=== PATIENT | male | born 1945 | race American Indian/Alaskan Native ===

== ENCOUNTER 2016-09-06 02:32 | Observation (INO) | payer MEDICARE ==
[~2016-09-06] VITALS: Ht 172.7 cm; Wt 90.1 kg
[~2016-09-06 02:32] MED LIST: BAYER CHEWABLE81 MG PO; IMDUR30 MG PO; LANTUS SOL100 UNIT/1 SC; LASIX20 MG PO; LIPITOR40 MG PO; METOPROLOL TART50 MG PO; NITROSTAT0.4 MG SL; PEPCID20 MG PO; PLAVIX75 MG PO; TERAZOSIN HCL2 MG PO; TRADJENTA5 MG PO
[2016-09-06 03:01] LABS: BASOPHILS 0.2 % (0.0-2.0); EOSINOPHILS 2.4 % (0-7); HEMATOCRIT 37.5 % (42.0-54.0); HEMOGLOBIN 12.6 g/dL (13.5-17.5); IMMATURE GRANULOCYTES 1.5 % (0-5); LYMPHOCYTES 19.5 % (15-50); MCH 32.7 pg (26.0-34.0); MCHC 33.6 g/dL (31.0-37.0); MCV 97.4 fL (80.0-100.0); MEAN PLATELET VOLUME 9.6 fL (7.4-10.4); MONOCYTES 8.4 % (2-11); PLATELET COUNT 171 10x3/uL (130-400); RBC 3.85 10x6/uL (4.20-6.10); RDW 13.1 % (11.5-14.5); WBC 6.6 10x3/uL (4.8-10.8)
[2016-09-06 03:08] LABS: APTT 27.3 SECONDS (22.8-39.4); INR 1.07 (0.85-1.17); PROTIME 13.8 SECONDS (11.6-15.0)
[2016-09-06 03:12] LABS: ALBUMIN 3.3 g/dL (3.4-5.0); ALKALINE PHOSPHATASE 69 U/L (46-116); ALT (SGPT) 19 U/L (10-68); BILIRUBIN - TOTAL 0.33 mg/dL (0.2-1.3); CALC OSMOLALITY 292 mosm/kg (275-300); CALCIUM 8.5 mg/dL (8.5-10.1); CARBON DIOXIDE 24.1 mmol/L (21.0-32.0); CHLORIDE - SERUM 103 mmol/L (98-107); CREATININE - SERUM 2.2 mg/dL (0.6-1.3); POTASSIUM - SERUM 4.4 mmol/L (3.5-5.1); PROTEIN - SERUM 6.9 g/dL (6.4-8.2); SODIUM 136 mmol/L (136-145); UREA NITROGEN 37 mg/dL (7-18); eGFR NON AFRICAN AMERICAN 31 mL/min (90-120)
[2016-09-06 03:13] LABS: GLUCOSE 307 mg/dL (74-106)
[2016-09-06 03:24] LABS: AMYLASE - SERUM 115 U/L (25-115); CKMB 0.7 U/L (0.0-3.6); CREATINE KINASE 62 UL (21-232); LIPASE 433 U/L (73-393); PRO BNP 340 pg/mL (0-125)
[2016-09-06 03:25] LABS: TROPONIN-I < 0.017 ng/mL (0.000-0.060)
[2016-09-06 04:00] VITALS: BP 170/93
[2016-09-06 05:15] VITALS: BP 170/93; BMI 28.6
--- NOTE | 2016-09-06 07:12 | NUR ---
PT RECEIVED FROM ER VIA WHEELCHAIR, AWAKE, ALERT, ORIENTED. 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 PT STATES HE HAS AN APPT TODAY @ 15:[address] GARLAND IN THE CLINIC. I EXPLAINED THAT DR. GARLAND WOULD BE SEEING HIM IN THE HOSPITAL. PT DENIES ANY NEEDS. CONTINUE TO MONITOR CLOSELY.
--- NOTE | 2016-09-06 07:28 | NUR ---
0715-AM ROUNDING DONE. PATIENT REQUESTING AN EXTRA BLANKET, NONE ON FLOOR AT PRESENT TIME. I TOLD HIM I WOULD GIVE HIM ONE WHEN THEY COME ONTO THE FLOOR. ON ROOM AIR, ON HEART MONITOR SHOWING SR, HR 77. SALINE LOCK SEEN TO LEFT AC. WILL CONTINUE TO MONITOR.
[2016-09-06 08:10] VITALS: BP 153/79
[2016-09-06 10:43] VITALS: Ht 172.7 cm; Wt 90.1 kg
[2016-09-06 11:50] VITALS: BP 110/64
--- NOTE | 2016-09-06 13:33 | NUR ---
SCD'S ON BILATERAL LE
--- NOTE | 2016-09-06 14:20 | NUR ---
WENT INTO DO FINGER STICK BLOOD SUGAR AND PATIENT STATES THAT "I WANT TO SLEEP, I HAVE NOT SLEPT SINCE 0800 YESTERDAY". DENIES ANY SYMTOMS.
--- NOTE | 2016-09-06 15:44 | NUR ---
PATIENT STATES THAT HIS LEFT LEG IS STARTING TO ITCH NOW OFF AND ON. I DO NOT SEE A RASH. WILL CONTINUE TO MONIOTOR.
[2016-09-06 15:52] VITALS: BP 148/52
[2016-09-06 20:00] VITALS: BP 157/88
--- NOTE | 2016-09-06 21:21 | NUR ---
RESTING IN BED. ALERT ORIENTED CONVERSANT. DENIES NEEDS. NO ACUTE DISTRESS NOTED.
[2016-09-07] VITALS: BP 179/75
--- NOTE | 2016-09-07 02:09 | NUR ---
LYING IN BED WITH EYES CLOSED, CALL LIGHT IN REACH. WILL CONTINUE WITH PLAN OF CARE.
[2016-09-07 04:00] VITALS: BP 161/87
--- NOTE | 2016-09-07 07:48 | NUR ---
0720-AROUSES EASILY FOR AM ROUNDING. STATES HE SLEPT WELL LAST NIGHT. SALINE LOCK SEEN TO LEFT AC, ON HEART MONITOR SHOWING SR, HR 73. ON ROOM AIR. LEFT FOOT IS SEEN WITH 3+ EDEMA, COMPLAINTS OF ANKLE DISCOMFOT. PATIENT TOLD MYSELF MIRNA NIGHT NURSE THAT HE "ROLLED MY ANKLE LAST WEEK". WILL PASS THIS TO [employer] SUPERVISOR.
[2016-09-07 08:06] VITALS: BP 114/72
[2016-09-07] MEDS ORDERED: TOPROL XL50 MG PO (12:18)
--- NOTE | 2016-09-07 13:34 | NUR ---
VERBAL AND WRITTEN DISCHARGE INSTRUCTIONS GIVEN TO PATIENT. PATIENT WANTED TO KNOW ABOUT EATING CORRECTLY FOR DIABETICS. PRINTED OFF MATERAIL FROM THE [employer] R/T CARBS AND DIET. SALINE LOCK REMOVED WITH CATH TIP INTACT. [place]BAN APPLIED AND INSTRUCTED TO PATIENT TO REMOVE SOON HE GETS HOME. DICHARGED HOME VIA WHEELCHAIR. PATIENT IS TO CALL [facility] AT [facility].
== END 2016-09-07 14:57 | disposition home or self-care (01) ==
LOC: D.ER 02:32 → D.M2 03:44 → OBSVTIME 03:44 → D.M2 04:40
PROVIDERS: Family Medicine; ADMIT Family Medicine
DX: R07.9 Chest pain, unspecified (principal); I25.10 Atherosclerotic heart disease of native coronary artery without angina pectoris; Z95.5 Presence of coronary angioplasty implant and graft; Z95.1 Presence of aortocoronary bypass graft; E11.22 Type 2 diabetes mellitus with diabetic chronic kidney disease; I13.0 Hypertensive heart and chronic kidney disease with heart failure and stage 1 through stage 4 chronic kidney disease, or unspecified chronic kidney disease; N18.4 Chronic kidney disease, stage 4 (severe); D63.1 Anemia in chronic kidney disease

== ENCOUNTER 2017-04-10 02:35 | Emergency (ER) | payer MEDICARE ==
[2016-09-06 10:43] VITALS: BMI 28.5
[~2017-04-10 02:35] MED LIST changes: +TOPROL XL50 MG PO
== END 2017-04-10 03:18 | disposition home or self-care (01) ==
LOC: D.ER 02:35
DX: I10 Essential (primary) hypertension (principal); I25.10 Atherosclerotic heart disease of native coronary artery without angina pectoris; E11.9 Type 2 diabetes mellitus without complications; Z79.4 Long term (current) use of insulin; I44.0 Atrioventricular block, first degree

== ENCOUNTER 2017-05-10 05:09 | Emergency (ER) | payer MEDICARE ==
[2016-09-06 10:43] VITALS: BMI 28.5
[2017-05-10 06:09] LABS: BASOPHILS 0.2 % (0-2); EOSINOPHILS 3.5 % (0-7); HEMATOCRIT 36.7 % (42.0-54.0); HEMOGLOBIN 12.5 g/dL (13.5-17.5); IMMATURE GRANULOCYTES 0.8 % (0-5); LYMPHOCYTES 15.9 % (15-50); MCHC 34.1 g/dL (31.0-37.0); MCV 93.9 fL (80.0-100.0); MEAN PLATELET VOLUME 9.8 fL (7.4-10.4); MONOCYTES 12.5 % (2-11); NEUTROPHILS 67.1 % (40-80); PLATELET COUNT 172 10x3/uL (130-400); RBC 3.91 10x6/uL (4.20-6.10); RDW 12.8 % (11.5-14.5); WBC 6.5 10x3/uL (4.8-10.8)
[2017-05-10 06:20] LABS: APPEARANCE CLEAR (CLEAR); BILIRUBIN NEGATIVE (NEGATIVE); COLOR YELLOW (YELLOW); GLUCOSE 1000 mg/dL (NEGATIVE); KETONE NEGATIVE (NEGATIVE); NITRITE NEGATIVE (NEGATIVE); PROTEIN NEGATIVE (NEGATIVE); UROBILINOGEN NORMAL (NORMAL)
[2017-05-10 06:32] LABS: KETONE - SERUM NEGATIVE (NEGATIVE)
[2017-05-10 06:38] LABS: ALBUMIN 3.2 g/dL (3.4-5.0); ALKALINE PHOSPHATASE 90 U/L (46-116); ALT (SGPT) 18 U/L (10-68); BILIRUBIN - TOTAL 0.25 mg/dL (0.2-1.3); CALC OSMOLALITY 284 mosm/kg (275-300); CALCIUM 8.9 mg/dL (8.5-10.1); CARBON DIOXIDE 25.8 mmol/L (21.0-32.0); CHLORIDE - SERUM 101 mmol/L (98-107); CREATININE - SERUM 2.2 mg/dL (0.6-1.3); GLUCOSE 283 mg/dL (74-106); POTASSIUM - SERUM 4.4 mmol/L (3.5-5.1); PROTEIN - SERUM 7.3 g/dL (6.4-8.2); SODIUM 135 mmol/L (136-145); UREA NITROGEN 27 mg/dL (7-18); eGFR NON AFRICAN AMERICAN 31 mL/min (90-120)
[2017-05-10 06:44] LABS: CREATINE KINASE 57 UL (21-232); MAGNESIUM - SERUM 1.6 mg/dL (1.8-2.4); PRO BNP 488 pg/mL (0-125)
[2017-05-10 06:46] LABS: TROPONIN-I < 0.017 ng/mL (0.000-0.060)
== END 2017-05-10 06:53 | disposition home or self-care (01) ==
LOC: D.ER 05:09
PROVIDERS: Emergency Medicine
DX: I10 Essential (primary) hypertension (principal); E11.65 Type 2 diabetes mellitus with hyperglycemia; Z79.4 Long term (current) use of insulin; D64.9 Anemia, unspecified

== ENCOUNTER 2017-07-11 18:37 | Observation (INO) | payer MEDICARE ==
[~2017-07-11] VITALS: Ht 172.7 cm; Wt 84.4 kg
[2017-07-11 19:20] LABS: BASOPHILS 0.5 % (0-2); EOSINOPHILS 3.9 % (0-7); HEMATOCRIT 33.5 % (42.0-54.0); HEMOGLOBIN 11.3 g/dL (13.5-17.5); IMMATURE GRANULOCYTES 1.3 % (0-5); LYMPHOCYTES 19.4 % (15-50); MCH 32.5 pg (26.0-34.0); MCHC 33.7 g/dL (31.0-37.0); MCV 96.3 fL (80.0-100.0); MEAN PLATELET VOLUME 9.7 fL (7.4-10.4); MONOCYTES 8.8 % (2-11); NEUTROPHILS 66.1 % (40-80); PLATELET COUNT 171 10x3/uL (130-400); RBC 3.48 10x6/uL (4.20-6.10); RDW 12.8 % (11.5-14.5); WBC 6.1 10x3/uL (4.8-10.8)
[2017-07-11 19:32] LABS: APTT 29.1 SECONDS (22.8-39.4); INR 1.17 (0.85-1.17); PROTIME 14.4 SECONDS (11.6-15.0)
[2017-07-11 19:37] LABS: ALBUMIN 3.1 g/dL (3.4-5.0); ALKALINE PHOSPHATASE 62 U/L (46-116); ALT (SGPT) 17 U/L (10-68); BILIRUBIN - TOTAL 0.22 mg/dL (0.2-1.3); CALC OSMOLALITY 296 mosm/kg (275-300); CALCIUM 8.4 mg/dL (8.5-10.1); CARBON DIOXIDE 24.2 mmol/L (21.0-32.0); CHLORIDE - SERUM 105 mmol/L (98-107); CREATININE - SERUM 2.8 mg/dL (0.6-1.3); GLUCOSE 225 mg/dL (74-106); POTASSIUM - SERUM 4.8 mmol/L (3.5-5.1); PROTEIN - SERUM 6.9 g/dL (6.4-8.2); SODIUM 139 mmol/L (136-145); UREA NITROGEN 45 mg/dL (7-18); eGFR NON AFRICAN AMERICAN 24 mL/min (90-120)
[2017-07-11 19:48] LABS: CHOL - HDL RATIO 5.8 ratio (2.3-4.9); CHOLESTEROL, TOTAL 268 mg/dL (0-200); CREATINE KINASE 54 UL (21-232); HDL CHOLESTEROL 46 mg/dL (32-96); LDL CHOLESTEROL 177 mg/dL (0-100); LDL-HDL RATIO 3.8 ratio (1.5-3.5); TRIGLYCERIDE 227 mg/dL (30-200)
[2017-07-11 19:52] LABS: TROPONIN-I < 0.017 ng/mL (0.000-0.060)
[2017-07-11] MEDS ORDERED: METOPROLOL TAR100 M1 PO (20:54)
[2017-07-11] MEDS ORDERED: HUMALOG 30100 UNITS/ SC (20:56)
[2017-07-11 22:08] VITALS: BP 141/72
[2017-07-11 22:53] VITALS: BP 141/72; BMI 28.3
[2017-07-12 02:30] LABS: CKMB 1.3 U/L (0.0-3.6); CREATINE KINASE 52 UL (21-232); TROPONIN-I < 0.017 ng/mL (0.000-0.060)
[2017-07-12 05:06] VITALS: BP 137/66
--- NOTE | 2017-07-12 05:38 | NUR ---
PT RECEIVED VIA WHEELCHAIR, AWAKE, ALERT, ORIENTED. PT STATES HE HAD AN EPISODE OF CHEST PAIN AT HOME, BUT HAS SUBSIDED AFTER NITRO GIVEN IN THE ER. PT HAS C/O CHEST PRESSURE, ESPECIALLY WHILE LYING DOWN, AND STATES HE HAS HAD TO ELEVATE HIS HEAD WHILE SLEEPING. PT STATES HE DID NOT USE HIS NITRO AT HOME R/T IT BEING A YEAR OLD OR OLDER. PT HAS BEEN RESTING COMFORTABLY SINCE ADMISSION, BUT HAS HAD MORE CHEST PAIN RELIEVED WITH PRN MORPHINE. PT DENIES ANY NEEDS AT THIS TIME. CONTINUE TO MONITOR CLOSELY.
--- NOTE | 2017-07-12 06:37 | NUR ---
PT RESTING COMFORTABLY, NO NEEDS AT THIS TIME. PT IS BEING HELD NPO ORDERED. CONTINUE TO MONITOR CLOSELY.
--- NOTE | 2017-07-12 07:30 | NUR ---
RECEIVED PT IN BED AAOX4 RESP UNLABORED DENIES ANY NEEDS OR DISCOMFORT NAD NOTED
[2017-07-12 08:25] LABS: BASOPHILS 0.4 % (0-2); EOSINOPHILS 5.1 % (0-7); HEMATOCRIT 34.2 % (42.0-54.0); HEMOGLOBIN 11.5 g/dL (13.5-17.5); IMMATURE GRANULOCYTES 1.5 % (0-5); LYMPHOCYTES 24.7 % (15-50); MCH 32.4 pg (26.0-34.0); MCHC 33.6 g/dL (31.0-37.0); MCV 96.3 fL (80.0-100.0); MEAN PLATELET VOLUME 9.7 fL (7.4-10.4); MONOCYTES 8.2 % (2-11); NEUTROPHILS 60.1 % (40-80); PLATELET COUNT 173 10x3/uL (130-400); RBC 3.55 10x6/uL (4.20-6.10); WBC 6.8 10x3/uL (4.8-10.8)
[2017-07-12 08:51] LABS: CALC OSMOLALITY 294 mosm/kg (275-300); CALCIUM 8.3 mg/dL (8.5-10.1); CARBON DIOXIDE 22.8 mmol/L (21.0-32.0); CHLORIDE - SERUM 106 mmol/L (98-107); CKMB 1.2 U/L (0.0-3.6); CREATINE KINASE 42 UL (21-232); CREATININE - SERUM 2.3 mg/dL (0.6-1.3); GLUCOSE 196 mg/dL (74-106); SODIUM 139 mmol/L (136-145); UREA NITROGEN 46 mg/dL (7-18); eGFR NON AFRICAN AMERICAN 30 mL/min (90-120)
[2017-07-12 08:52] LABS: TROPONIN-I < 0.017 ng/mL (0.000-0.060)
[2017-07-12 10:10] VITALS: BP 115/66
[2017-07-12 11:20] VITALS: BMI 28.2
[2017-07-12 12:35] VITALS: Ht 172.7 cm; Wt 84.4 kg
[2017-07-12 13:14] VITALS: BP 115/64
[2017-07-12] MEDS ORDERED: ISOSORBIDE MONO60 M1 PO (14:45)
--- NOTE | 2017-07-12 16:05 | NUR ---
REVIEWED DISCHARGE INSTRUCTIONS WITH PT STATES UNDERSTANDING COPY GIVEN DCD SALINE LOCK TO LAC WITH IV CATHETER INTACT SITE FREE OF REDNESS OR EDEMA PT DISCHARGED HOME LEFT VIA W/C IN STABLE CONDTION WITH ALL PERSONAL BELONGINGS
--- NOTE | 2017-07-16 12:15 | CN ---
PATIENT NAME:CORRINE PAK MEDICAL RECORD: [id number] : 45 LOCATION:[id number] ADMIT DATE: 07/11/17 ACCOUNT: [id number] CONSULTING PHYSICIAN: TIERRA RIZVI MD REFERRING PHYSICIAN: TIERRA RIZVI MD DATE OF CONSULTATION: 07/12/2017 ADMITTING DIAGNOSES: 1. Angina. 2. Coronary artery disease. 3. Previous coronary artery bypass graft surgery. 4. Hypertension. 5. Hyperlipidemia. 6. Noninsulin-dependent diabetes. 7. Renal insufficiency. HISTORY OF PRESENT ILLNESS: This is a gentleman who presents with mild chest discomfort. Troponin is normal. EKG is with no changes. He has an extensive history of coronary artery disease dating back to 1998 when he had bypass surgery. Last admission, Dr. Cullen could not get through one of the bypass grafts for a significant stenosis. He was placed on Imdur 30 mg every day. He did well. He has been having more episodes of chest discomfort, but this is more of a chronic stable anginal picture that is slowly worsening. His creatinine has worsened at 2.8. PHYSICAL EXAMINATION: GENERAL APPEARANCE: Well-nourished, well-developed, appears stated age. Level of distress, comfortable. PSYCHIATRIC: Mental status, alert, normal affect. Orientation, oriented to time, place and person. EYES: Lids and conjunctiva, noninjected. No discharge, no pallor. ENT: Lips, teeth, gums, normal dentition. Oropharynx, no cyanosis, no pallor. NECK: Carotid arteries, bilateral normal upstroke, no bruits, no thrills. JUGULAR VEINS: No jugular venous pressure or distention. CERVICAL LYMPH NODES: Nontender, nonenlarged. THYROID: Not enlarged. Nontender. No nodules. LUNGS: Respiratory effort, unlabored. CHEST: Normal curvature. No thoracic deformity. No chest wall tenderness. Percussion, resonant. Auscultation, clear. No wheezes, no rales, no rhonchi. CARDIOVASCULAR: Precordial exam, nondisplaced. No heaves or pericardial thrills. Rate and rhythm, regular. Heart sounds, normal S1, normal S2. No S3, no gallop, no rub. Systolic murmur, not heard. Diastolic murmur, not heard. EXTREMITIES: No cyanosis, no edema. Peripheral pulses, full and equal in all extremities, except as noted. No bruits appreciated. ABDOMEN: Soft, nondistended. Normal aorta. No bruit. Nontender. No masses. Liver, nontender, no hepatomegaly. Spleen, nontender, no splenomegaly. MUSCULOSKELETAL: No joint tenderness. No joint swelling. No erythema. NEUROLOGICAL: Normal gait, normal strength, normal tone. SKIN: Warm and dry. OVERALL IMPRESSION: At this time, I do not plan for cardiac catheterization due to his renal insufficiency. We will increase his Imdur to 60 mg b.i.d. No other cardiac workup treatment is necessary at this time. We will have renal see him. CONSULT REPORT [id number] CORRINE PAK TRANSINT:[id number] Voice Confirmation ID: [id number] DOCUMENT ID: [id number] TIERRA RIZVI MD at 1215 CC: [id number] DICTATION DATE: 07/12/17 0852 SAP ADMINISTRATOR: 07/12/17 1033 DIS IN 07/12/17 [id number] [place] [address]
== END 2017-07-12 16:05 | disposition home or self-care (01) ==
LOC: D.ER 18:37 → D.M2 20:05 → OBSVTIME 20:05 → D.M2 20:05
PROVIDERS: Family Medicine; ADMIT Internal Medicine Interventional Cardiology
DX: R07.9 Chest pain, unspecified (principal); I25.119 Atherosclerotic heart disease of native coronary artery with unspecified angina pectoris; Z95.1 Presence of aortocoronary bypass graft; E11.22 Type 2 diabetes mellitus with diabetic chronic kidney disease; I13.0 Hypertensive heart and chronic kidney disease with heart failure and stage 1 through stage 4 chronic kidney disease, or unspecified chronic kidney disease; N18.9 Chronic kidney disease, unspecified; I50.9 Heart failure, unspecified; E78.5 Hyperlipidemia, unspecified